=== PATIENT | male | born 1990 | race Caucasian/White ===

== ENCOUNTER 2017-03-15 15:55 | Inpatient (IN) | payer OTHER ==
[2017-03-15 16:35] LABS: #Eosinphils 0.1 thou/uL (0.0-0.7); #Lymphocytes 1.3 thou/uL (1.20-3.40); #Monocytes 0.6 thou/uL (0.11-0.59); #Neutrophils 5.1 thou/uL (1.40-6.50); %Basophils 0.5 % (0.0-1.0); %Eosinophils 1.4 % (0.0-10.0); %Lymphocytes 17.8 % (21.0-51.0); %Monocytes 8.6 % (0.0-10.0); Hematocrit 50.1 % (42.0-52.0); Mean Platelet Volume 7.9 fL (7.4-10.4); Red Blood Cell (RBC) Count 5.75 mill/uL (4.70-6.10); White Blood Cell (WBC) Count 7.1 thou/uL (4.8-10.8)
[2017-03-15] MEDS ORDERED: Bupivacaine HCl 0.5%/Epinephrine 1:200,000/PF 30 ml Vial ONE (16:52)
[2017-03-15] MEDS ORDERED: Bupivacaine 0.25% HCL 30 ML VIAL ONE (16:52)
[2017-03-15] MEDS ORDERED: Iothalamate Meglumine 60% 50 ML VIAL FS ONE (16:53)
[2017-03-15 17:01] LABS: ALT (SGPT) 615 U/L (8-55); AST (SGOT) 164 U/L (5-34); Alkaline Phosphatase 269 U/L (40-150); Anion Gap 18 mmol/L (10-20); BUN (Urea Nitrogen) 10 mg/dL (8.9-20.6); Bilirubin, Total 9.4 mg/dL (0.2-1.2); Calc. Creatinine Clearance 0 mL/min (70-130); Calcium 10.4 mg/dL (7.8-10.44); Carbon Dioxide 22 mmol/L (22-29); Chloride 100 mmol/L (98-107); Estimated GFR-MDRD 76; Globulin 3.6 g/dL (2.4-3.5); Lipase 13 U/L (8-78); Protein, Total 8.4 g/dL (6.0-8.3)
[2017-03-15] MEDS ORDERED: Fentanyl 100 MCG/2 ML VIAL ONE ×2 (17:08→20:18)
[2017-03-15] MEDS ORDERED: Midazolam HCl 2 mg/2 ml Vial ONE (17:08)
[2017-03-15] MEDS ORDERED: Ondansetron HCl/PF 4 MG/2 ML Vial ONE (17:31)
[2017-03-15] MEDS ORDERED: Glycopyrrolate 0.2 MG/ML 5 ML SYRINGE ONE (17:31)
[2017-03-15] MEDS ORDERED: Propofol 200 MG/20 ML VIAL ONE (17:31)
[2017-03-15] MEDS ORDERED: Lidocaine 1% PF 5 ML VIAL ONE (17:31)
[2017-03-15] MEDS ORDERED: PHENYLEPHRINE-NS 100 MCG/ML 10 ML SYRINGE ONE (17:31)
[2017-03-15] MEDS ORDERED: Dexamethasone 20 MG/5 ML VIAL ONE (17:31)
[2017-03-15] MEDS ORDERED: Promethazine HCl 25 MG/ML VIAL SLOW IVP PRN (19:43)
[2017-03-15] MEDS ORDERED: Promethazine HCl 25 MG/ML VIAL IM PRN (19:43)
[2017-03-15] MEDS ORDERED: Ondansetron HCl/PF 4 MG/2 ML Vial IVP PRN (19:43)
[2017-03-15] MEDS ORDERED: Promethazine HCl 25 MG/ML VIAL ONE (20:10)
[2017-03-15] MEDS ORDERED: Morphine Sulfate 2 MG/ML SYRINGE SLOW IVP PRN (21:03)
[2017-03-15] MEDS ORDERED: Ondansetron HCl/PF 4 MG/2 ML Vial SLOW IVP PRN (21:10)
[2017-03-15] MEDS ORDERED: Pantoprazole 40 MG VIAL IVP SCH (21:15)
[2017-03-15] MEDS: D5 1/2 NS w/20 mEq KCL 1,000 ML IV SCH (22:23)
[2017-03-15] MEDS: Piperacillin/Tazobactam 3.375 GM in Sodium Chloride 0.9% 100 ML IVPB SCH (23:57)
[2017-03-16 01:04] VITALS: BMI 35.4
[2017-03-16] MEDS: D5 1/2 NS w/20 mEq KCL 1,000 ML IV SCH ×3 (05:53→18:56)
[2017-03-16] MEDS: Piperacillin/Tazobactam 3.375 GM in Sodium Chloride 0.9% 100 ML IVPB SCH ×4 (05:53→23:43)
[2017-03-16 06:40] LABS: #Lymphocytes 1.1 thou/uL (1.20-3.40); #Monocytes 0.7 thou/uL (0.11-0.59); %Basophils 0.1 % (0.0-1.0); %Eosinophils 0.2 % (0.0-10.0); %Lymphocytes 11.5 % (21.0-51.0); %Monocytes 6.9 % (0.0-10.0); Mean Platelet Volume 8.3 fL (7.4-10.4); Red Blood Cell (RBC) Count 4.98 mill/uL (4.70-6.10); White Blood Cell (WBC) Count 9.9 thou/uL (4.8-10.8)
[2017-03-16 07:04] LABS: ALT (SGPT) 533 U/L (8-55); AST (SGOT) 233 U/L (5-34); Alkaline Phosphatase 227 U/L (40-150); Anion Gap 17 mmol/L (10-20); BUN (Urea Nitrogen) 11 mg/dL (8.9-20.6); Calc. Creatinine Clearance 177 mL/min (70-130); Calcium 9.3 mg/dL (7.8-10.44); Carbon Dioxide 19 mmol/L (22-29); Chloride 104 mmol/L (98-107); Estimated GFR-MDRD Greater than 90; Globulin 3.2 g/dL (2.4-3.5); Lipase 14 U/L (8-78); Protein, Total 7.1 g/dL (6.0-8.3)
[2017-03-16] MEDS: Pantoprazole 40 MG VIAL IVP SCH (08:57)
--- NOTE | 2017-03-16 10:36 | RAD ---
INTRAOPERATIVE CHOLANGIOGRAM: 03/15/2017 HISTORY: Multiple gallbladder calculi. Cholecystectomy. FINDINGS: Two intraoperative fluoroscopic images from intraoperative cholangiogram were submitted for interpre tation. The cystic duct is cannulated. There is mild dilatation of the common duct, as well as the visualized intrahepatic ducts. There is a filling defect seen in the mid portion of the common cliff t, and contrast does not extend distal to this region, and this may represent a calculus within the common duct. There is no free spill of contrast seen into the duodenum. Multiple surgical clips ov erly the right upper quadrant. IMPRESSION: 1. Filling defect in the mid portion of the extrahepatic common duct without free spill of contrast seen in the duodenum and biliary ductal dilatation, likely related to choledocholithiasis. 2. Correlation with intraoperative findings is recommended. POS: OFF
[2017-03-16] MEDS ORDERED: HYDROcodone/Acetaminophen 7.5/325 mg Tablet PO PRN (13:13)
[2017-03-16] MEDS ORDERED: traMADol HCl 50 MG TAB PO PRN (13:13)
[2017-03-16] MEDS ORDERED: Iothalamate Meglumine 60% 50 ML VIAL FS ONE (16:08)
[2017-03-16] MEDS ORDERED: Fentanyl 100 MCG/2 ML VIAL ONE (16:08)
[2017-03-16] MEDS ORDERED: Lidocaine 1% PF 5 ML VIAL ONE (16:26)
[2017-03-16] MEDS ORDERED: Propofol 200 MG/20 ML VIAL ONE (16:26)
[2017-03-16] MEDS ORDERED: Succinylcholine Chloride 20 MG/ML 10 ml SYRINGE FS ONE (16:26)
[2017-03-16] MEDS ORDERED: Ondansetron HCl/PF 4 MG/2 ML Vial ONE (16:26)
[2017-03-16] MEDS ORDERED: Indomethacin 50 MG SUPP ONE (16:36)
--- NOTE | 2017-03-16 17:19 | PDOC.OP ---
Operative Note - Operative Note Operative Note: PROCEDURE: Laparoscopic cholecystectomy with intraoperative cholangiogram SURGEON: Tony Hernandez M.D. DATE OF PROCEDURE: 03/15/2017 PREOPERATIVE DIAGNOSIS: Cholelithiasis and cholecystitis, possible choledocholithiasis: POSTOPERATIVE DIAGNOSIS: Cholelithiasis and cholecystitis, choledocholithiasis HISTORY: Patient with a two-month history of epigastric pain radiated to the right upper quadrant and back and accompanied by nausea and vomiting. Symptoms have been worse over the past 2 weeks and his primary care doctor obtained labs which showed a mild transaminase elevation and an ultrasound which showed multiple gallstones with a normal caliber bile duct. Recommendation was made to proceed with laparoscopic cholecystectomy, with intraoperative cholangiogram due to the transaminase elevation. The patient had labs drawn immediately before his operation and these were noted intraoperatively to have a significant rise in his LFTs very suggestive of choledocholithiasis. FINDINGS: Extremely inflamed and edematous gallbladder with acute-appearing adhesions and severe fibrosis at the neck consistent with both a chronic and acute component of cholecystitis. Large caliber cystic duct with filling defect in the common distal bile duct and no flow into the duodenum consistent with obstructing choledocholithiasis. PROCEDURE IN DETAIL: After informed consent was obtained and appropriate preoperative antibiotics were administered, the patient was taken to the operating room and placed in the supine position and general endotracheal anesthesia was administered. The stomach was decompressed with an OG tube and the abdomen was prepped and draped in standard sterile fashion. Local anesthesia was infused to the skin and subcutaneous tissues at the umbilical level. A transverse skin incision was made. The fascia was elevated and a Veress needle was placed into the abdominal cavity by opening pressure rapidly pro consistent with placement of the needle into the preperitoneal tissues. A second attempt was made with the same result, so the skin incision was extended and dissection carried down to the fascia which was incised under direct vision. 0 Vicryl sutures were placed and the peritoneal cavity entered under direct vision. The abdominal cavity was carefully examined. There was no evidence of Veress needle or of trocar injury. Local anesthesia was infused to the skin and subcutaneous tissues at the epigastric, right upper quadrant, and right lateral abdominal sites and trocars were placed under direct vision of the laparoscope. The gallbladder was noted to be very white walled and distended, with some filmy adhesions which were easily taken down bluntly between the omentum and the gallbladder. The fundus of the gallbladder was too tensely distended to grasp, so the gallbladder was aspirated with removal of almost 60 mL's of light colored bilious fluid. The fundus was then grasped and retracted superiorly. The infundibulum was grasped and retracted laterally. The serosa was stripped inferiorly at the level of the neck of the gallbladder with difficulty due to severe fibrosis. Using meticulous and careful dissection the cystic duct was able to be clearly identified and traced to its insertion in the gallbladder. This was dissected free circumferentially and the cystic duct was clipped at the level of the neck of the gallbladder. An incision was made in the cystic duct inferior to the clip and the cystic duct was palpated with no stones palpable. Clear bile was seen to flow from the cystic duct incision. A cholangiogram catheter was introduced and placed into the cystic duct and secured with a clamp. Due to the high probability choledocholithiasis, glucagon was administered and allowed to circulate systemically. A cholangiogram was then obtained which showed an adequate length of cystic duct. There was a filling defect in the distal common bile duct with no flow of contrast into the duodenum, consistent with an obstructing stone in the distal bile duct. The cholangiogram catheter was removed and the cystic duct clipped below the incision in the cystic duct. The cystic duct was divided between these clips and the previously placed clip. Due to the large size of the cystic duct, a ligature was placed inferior to the clip on the cystic duct. The cystic artery was then identified posterior to the cystic duct and dissected free circumferentially. The cystic artery was clipped and divided between clips. The gallbladder was then dissected free of the gallbladder bed using hook electrocautery. During this process some stones were spilled, but later retrieved. Prior to complete removal of the gallbladder from the gallbladder bed , the area of the cystic duct and artery stumps was examined. The clips and Endoloop were in good position completely across these structures and there was no bleeding and no leakage of bile. The gallbladder was then placed into an EndoCatch bag and drawn out through the epigastric incision. The epigastric trocar was replaced and the operative site easily irrigated to clear. There was no significant bleeding or spillage of bile. The epigastric trocar was removed and the fascia closed under direct laparoscopic vision with a 0 Vicryl suture on a GraNee needle in a [id number] manner with excellent technical result. The right upper quadrant and right lateral abdominal trocars were removed and hemostasis verified. Carbon dioxide gas was allowed to desufflate through the umbilical trocar which was then removed. The umbilical fascia was closed using the previously placed 0 Vicryl sutures with excellent technical result. The skin incisions were closed with 4-0 subcuticular Monocryl sutures and Dermabond dressings were placed. The patient was extubated and taken to the recovery room in good condition with plans by gastroenterology to perform an ERCP the following day. There were no complications. ESTIMATED BLOOD LOSS: Minimal. SPECIMEN : Gallbladder and contents.
[2017-03-16] MEDS ORDERED: Ondansetron HCl/PF 4 MG/2 ML Vial IVP PRN (17:21)
[2017-03-16] MEDS ORDERED: Promethazine HCl 25 MG/ML VIAL SLOW IVP PRN (17:21)
[2017-03-16] MEDS ORDERED: Promethazine HCl 25 MG/ML VIAL IM PRN (17:21)
[2017-03-16] MEDS ORDERED: HYDROmorphone 2 MG/ML VIAL SLOW IVP PRN (17:21)
[2017-03-16] MEDS ORDERED: Meperidine HCl/PF 25 MG/ML VIAL SLOW IVP PRN (17:21)
--- NOTE | 2017-03-16 19:26 | RAD ---
ERCP: 03/16/17 COMPARISON: None. HISTORY: Right upper quadrant pain, recent cholecystectomy. FINDINGS: Four images from an ERCP provided. Initial image demonstrates contrast media within the pancreatic d uct, common duct, and partially opacified intrahepatic ducts. Second image demonstrates a balloon ex panded within the mid CBD. On the third image, there is an area of contrast media lateral to the mid CBD and adjacent to the scope, likely within the duodenum. Mild intrahepatic biliary prominence is noted on image 4 of 4. IMPRESSION: ERCP as above. POS: WANG
[2017-03-16] MEDS: HYDROcodone/Acetaminophen 7.5/325 mg Tablet PO PRN (20:10)
[2017-03-16] MEDS: Tamsulosin HCl 0.4 MG CAP PO SCH (20:11)
[2017-03-17] MEDS: HYDROcodone/Acetaminophen 7.5/325 mg Tablet PO PRN ×3 (00:16→17:45)
[2017-03-17] MEDS: D5 1/2 NS w/20 mEq KCL 1,000 ML IV SCH ×5 (00:41→23:59)
--- NOTE | 2017-03-17 00:55 | OP ---
DATE OF PROCEDURE: 03/16/2017 PROCEDURES PERFORMED: Endoscopic retrograde cholangiopancreatography with sphincterotomy and stone extraction. ATTENDING PHYSICIAN: Derek Arreola M.D. MEDICATIONS: Given by Anesthesiology Department. PREPROCEDURE DIAGNOSES: 1. Choledocholithiasis on intraoperative cholangiogram. 2. Status post laparoscopic cholecystectomy. POSTOPERATIVE DIAGNOSES: 1. Choledocholithiasis. 2. Evidence of cholangitis. PROCEDURE IN DETAIL: Written consent was obtained prior to procedure. After adequate sedation, mariah e-viewing endoscope was advanced down the stomach through the pylorus into the duodenum. The ampull a was visualized and appeared normal. Selective cannulation was performed with assistance with a gu idewire into the common bile duct. Cannulation was successful. Cholangiogram obtained showed a uni formly dilated common duct to approximately 8-9 mm. A single filling defect was noted in the mid co mmon bile duct. The catheter was able to traverse the filling defect into the proximal duct. Injec tion of contrast did not show any other filling defect. A sphincterotomy was then performed at the 12 o'clock position with good hemostasis. A 9 mm biliary balloon was then exchanged with extraction of the stone. Occlusive cholangiogram was then performed and did not show any other filling defect . The catheter was removed. There was prompt excretion of contrast. There was purulent bile noted at the stone extraction. The patient tolerated the procedure well without any immediate complicati on. ASSESSMENT: Choledocholithiasis with evidence of cholangitis, status post sphincterotomy and stone extraction. RECOMMENDATIONS: 1. Observe overnight. 2. Advance diet. 3. Continue with antibiotics. 4. Follow up liver profile in a.m.
[2017-03-17 05:10] LABS: #Eosinphils 0.1 thou/uL (0.0-0.7); #Lymphocytes 1.3 thou/uL (1.20-3.40); #Monocytes 0.8 thou/uL (0.11-0.59); #Neutrophils 5.6 thou/uL (1.40-6.50); %Basophils 0.2 % (0.0-1.0); %Eosinophils 1.2 % (0.0-10.0); %Lymphocytes 16.4 % (21.0-51.0); %Monocytes 9.8 % (0.0-10.0); Hematocrit 42.1 % (42.0-52.0); Mean Platelet Volume 7.5 fL (7.4-10.4); Red Blood Cell (RBC) Count 4.68 mill/uL (4.70-6.10); White Blood Cell (WBC) Count 7.7 thou/uL (4.8-10.8)
[2017-03-17 05:35] LABS: ALT (SGPT) 440 U/L (8-55); AST (SGOT) 155 U/L (5-34); Alkaline Phosphatase 232 U/L (40-150); Anion Gap 13 mmol/L (10-20); BUN (Urea Nitrogen) 9 mg/dL (8.9-20.6); Bilirubin, Total 6.2 mg/dL (0.2-1.2); Calc. Creatinine Clearance 179 mL/min (70-130); Calcium 9.1 mg/dL (7.8-10.44); Carbon Dioxide 23 mmol/L (22-29); Chloride 103 mmol/L (98-107); Estimated GFR-MDRD Greater than 90; Globulin 2.5 g/dL (2.4-3.5)
[2017-03-17] MEDS: Piperacillin/Tazobactam 3.375 GM in Sodium Chloride 0.9% 100 ML IVPB SCH ×4 (05:48→23:59)
--- NOTE | 2017-03-17 06:36 | CON ---
DATE OF CONSULTATION: 03/16/2017 REASON FOR CONSULTATION: Choledocholithiasis. HISTORY OF PRESENT ILLNESS: Mr. Armendariz is a 26-year-old who was brought in as an outpatient yester day for laparoscopic cholecystectomy. He has been having biliary colic. LFTs on 03/02/2017, which were normal except for an ALT of 58. At the time of his laparoscopic cholecystectomy, he had positi ve IOC and labs yesterday also showed a bilirubin of 9.4, AST and ALT of 164 and 615 with an alkalin e phosphatase of 269, his lipase was normal at 13. will be removed and he was placed n.p.o. f or an ERCP today. The patient denies any fever, chills, or rigors. LABORATORY AND X-RAY FINDINGS: Labs are notable for a bilirubin of 7, AST and ALT of 233 and 533 an d a lipase of 14. His white count is 9.9, his hemoglobin is 15, platelet count is 257. PAST MEDICAL HISTORY: Reflux, asthma, gallstone. PAST SURGICAL HISTORY: Negative. MEDICATIONS: Omeprazole, lisinopril, Zofran, and Naprosyn. MEDICATIONS HERE: Colbert, morphine, Zofran, Protonix, Zosyn q. 6 hours, normal saline 20 K 50 an matt r, Ultram. PHYSICAL EXAMINATION: GENERAL: The patient is resting comfortably in bed. VITAL SIGNS: Temperature is 97, pulse 80, blood pressure is 124/73, respirations 16. LUNGS: Clear. HEART: Regular rate and rhythm without clicks or murmurs. ABDOMEN: Soft, nontender except for his trocar sites which are clean and dry. Bowel sounds are lise escent. EXTREMITIES: No clubbing, cyanosis, or edema. LABORATORY STUDIES: As above. ASSESSMENT: Choledocholithiasis. PLAN: ERCP risks, benefits, and possible complications including perforation, bleeding, reaction to medication, and aspiration were all discussed with the patient. He understands these risks and ind ication of the procedure and wishes to proceed.
[2017-03-17] MEDS: Pantoprazole 40 MG VIAL IVP SCH (09:00)
[2017-03-17] MEDS: traMADol HCl 50 MG TAB PO PRN ×2 (13:35→20:08)
--- NOTE | 2017-03-17 16:02 | PRG ---
DATE OF SERVICE: 03/17/2017 SUBJECTIVE: Mr. Armendariz is status post laparoscopic cholecystectomy 2 days ago and ERCP yesterday f or choledocholithiasis. He had a mild amount of pus in the bile duct. He is feeling pretty good, a little bit nauseated. He still has indwelling Smith catheter. His urinary retention was presumpti vely related to pain medications. He has been up and walking today. The plans are possibly for him to go home later today with Smith catheter in place. MEDICATIONS: Hydrocodone, p.r.n. morphine, Zofran, Protonix, and Zosyn. PHYSICAL EXAMINATION: VITAL SIGNS: Temperature is 98, pulse 65, and blood pressure 116/73. LUNGS: Clear. HEART: Regular rhythm. ABDOMEN: Soft and nontender. LABORATORY DATA: White count 7.7, hemoglobin 14, and platelet count 191. Chemistry: Sodium 135. Bilirubin is down from 9 to 6.2. AST is down from 233 yesterday to 155 today. ALT from 533 to 440. Alkaline phosphatase 232. ASSESSMENT: 1. Choledocholithiasis, status post endoscopic retrograde cholangiopancreatography, resolved. No s igns of bleeding or pancreatitis. 2. Urinary retention, a Smith catheter in place. 3. The patient had some scrotal edema, which has improved. 4. The patient had mild cholangitis with pus in the biliary tree and he is on antibiotics. He can go home with Levaquin for about 3 more days. , will go home today, we will follow from a tiarra babin. If I can be of any further assistance, please do not hesitate to contact me.
[2017-03-17] MEDS: Tamsulosin HCl 0.4 MG CAP PO SCH (20:09)
[2017-03-18] MEDS: traMADol HCl 50 MG TAB PO PRN (05:22)
[2017-03-18] MEDS: Piperacillin/Tazobactam 3.375 GM in Sodium Chloride 0.9% 100 ML IVPB SCH ×2 (05:22→12:56)
[2017-03-18 06:26] LABS: ALT (SGPT) 293 U/L (8-55); AST (SGOT) 74 U/L (5-34); Alkaline Phosphatase 240 U/L (40-150); Bilirubin, Direct 1.6 mg/dL (0.1-0.3); Bilirubin, Total 2.6 mg/dL (0.2-1.2); Protein, Total 6.5 g/dL (6.0-8.3)
[2017-03-18] MEDS: Pantoprazole 40 MG VIAL IVP SCH (08:46)
[2017-03-18] MEDS: D5 1/2 NS w/20 mEq KCL 1,000 ML IV SCH (08:46)
[2017-03-18] MEDS ORDERED: Bisacodyl 10 MG SUPP PR SCH (09:00)
[2017-03-18] MEDS ORDERED: Bethanechol Chloride 10 MG TAB PO SCH (09:15)
[2017-03-18 12:47] VITALS: BP 113/81; TEMP 98.5
--- NOTE | 2017-03-20 07:38 | DIS ---
ATTENDING PHYSICIAN: Dr. Tony Hernandez PRINCIPAL PROCEDURES: On 03/16/2170, the patient underwent laparoscopic cholecystectomy with intrao perative cholangiogram by Dr. Tony Hernandez. On 03/16/2017 later that day, the patient underwent a ERCP with sphincterotomy and stone extraction. HOSPITAL COURSE: The patient was brought in as an outpatient. He had cholecystitis with chronic pa in for the last 2 weeks. Continued to have a history of elevated LFTs. His hospital course was une ventful and his cholecystectomy and subsequent ERCP for continued to trend filling defects within th e common bile, as well as increasing LFTs. His liver function tests started to trend down after the procedures were finished on 03/17/2017. The patient continued to do well, but still had some nause a. On 03/18/2017, patient was feeling much better. His Smith was removed. He was urinating fine, his postvoid residual was level. The patient was cleared for discharge by Dr. Trevor Mckeon at bedside. The patient was then given discharge instructions to follow up with Dr. Hernandez in 7-10 days as we ll as given a prescription by Dr. Hernandez for hydrocodone 7.5/325 1-2 tabs p.o. q.6 hours p.r.n. michael n, dispense 30. Continue home medications. Continue with local wound care to the laparoscopic surg ical site keeping them clean and dry. The patient understood the above and was agreeable for discharge home. This is merely a discharge summary, please refer to the chart for further information.
== END 2017-03-18 14:13 | disposition home or self-care (01) | DRG 419 ==
LOC: SDC 15:55 → SURG A 19:32
PROVIDERS: ADMIT Surgery; ATTEND Surgery
PROC: 0FT44ZZ Resection of Gallbladder, Percutaneous Endoscopic Approach (ICD-10-PCS; principal; 2017-03-15)
PROC: BF10YZZ Fluoroscopy of Bile Ducts using Other Contrast (ICD-10-PCS; 2017-03-15)
PROC: BF10YZZ Fluoroscopy of Bile Ducts using Other Contrast (ICD-10-PCS; 2017-03-16)
PROC: 0FC98ZZ Extirpation of Matter from Common Bile Duct, Via Natural or Artificial Opening Endoscopic (ICD-10-PCS; 2017-03-16)
DX: K80.44 Calculus of bile duct with chronic cholecystitis without obstruction (principal); R33.9 Retention of urine, unspecified; Z83.3 Family history of diabetes mellitus; Z82.3 Family history of stroke; Z80.6 Family history of leukemia
CPT/HCPCS: 36415; 47532; 74330; 80053; 80076; 83690; 85025; 88304; C9113; J0670; J1100; J1610; J2001; J2250; J2270; J2405; J2543; J2550; J2704; J3010; J7050; Q9961; S0020

== ENCOUNTER 2018-10-16 08:37 | Outpatient (CLI) | payer OTHER ==
--- NOTE | 2018-10-16 08:57 | RAD ---
Thoracic spine 3 views HISTORY: Back pain. FINDINGS: There are 12 thoracic type vertebrae. Pedicles are intact. Vertebral body heights and AP al ignment are maintained. Minimal S shaped curvature on the frontal view. IMPRESSION: No acute osseous abnormalities are demonstrated
[2018-10-16 09:00] LABS: #Basophils 0.1 thou/uL (0.0-0.2); #Eosinphils 0.1 thou/uL (0.0-0.7); #Lymphocytes 2.2 thou/uL (1.20-3.40); #Monocytes 0.5 thou/uL (0.11-0.59); %Basophils 1.3 % (0.0-1.0); %Eosinophils 1.9 % (0.0-10.0); %Monocytes 8.5 % (0.0-10.0); %Neutrophils 51.3 % (42.0-75.0); Hemoglobin 16.4 g/dL (14.0-18.0); Mean Corpuscular HGB CONC 34.3 g/dL (32.0-36.0); Mean Corpuscular Hemoglobin 29.1 pg (27.0-31.0); Mean Corpuscular Volume 84.9 fL (78.0-98.0); Mean Platelet Volume 8.1 fL (7.4-10.4); Platelet Count 212 thou/uL (130-400); RBC Distribution Width 11.5 % (11.5-14.5); Red Blood Cell (RBC) Count 5.62 mill/uL (4.70-6.10); White Blood Cell (WBC) Count 5.9 thou/uL (4.8-10.8)
[2018-10-16 09:18] LABS: ALT (SGPT) 59 U/L (8-55); AST (SGOT) 50 U/L (5-34); Albumin 4.7 g/dL (3.5-5.0); Alkaline Phosphatase 65 U/L (40-150); Anion Gap 12 mmol/L (10-20); BUN (Urea Nitrogen) 15 mg/dL (8.9-20.6); Bilirubin, Total 0.9 mg/dL (0.2-1.2); Calc. Creatinine Clearance 0 mL/min (70-130); Calcium 9.7 mg/dL (7.8-10.44); Carbon Dioxide 26 mmol/L (22-29); Chloride 104 mmol/L (98-107); Estimated GFR-MDRD 88; Globulin 2.6 g/dL (2.4-3.5); Glucose 91 mg/dL (70-105); Potassium 4.2 mmol/L (3.5-5.1); Protein, Total 7.3 g/dL (6.0-8.3); Sodium 138 mmol/L (136-145)
[2018-10-16 09:51] LABS: Free T4 (Free Thyroxine) 0.98 ng/dL (0.70-1.48)
== END 2018-10-16 08:38 | disposition home or self-care (01) ==
LOC: SCSRAD 08:37
PROVIDERS: ATTEND Family Medicine
DX: M54.9 Dorsalgia, unspecified (principal); R53.82 Chronic fatigue, unspecified
CPT/HCPCS: 36415; 72072; 80053; 84439; 84443; 85025